=== PATIENT | male | born 1945 ===

== ENCOUNTER 2018-05-24 16:42 | Observation (INO) | payer MEDICARE, MEDICAID ==
[2018-05-24 17:51] LABS: BASO % 0.2 % (0.0-2.0); EOS # 0.1 K/uL (0.0-0.7); EOS % 1.1 % (0.0-4.0); HEMOGLOBIN 12.5 g/dL (12.0-18.0); LYMPH # 1.2 K/uL (1.0-4.3); LYMPH % 12.9 % (20.0-40.0); MEAN CELL VOLUME 94.5 fl (80.0-94.0); MEAN CORPUSCULAR HEMOGLOBIN 31.6 pg (27.0-31.0); MEAN CORPUSCULAR HGB CONC 33.4 g/dL (33.0-37.0); MEAN PLATELET VOLUME 8.1 fl (7.2-11.7); MONO # 0.6 K/uL (0.0-0.8); NEUT # 7.3 K/uL (1.8-7.0); NEUT % 78.8 % (50.0-75.0); RBC 3.94 Mil/uL (4.40-5.90); RED CELL DISTRIBUTION WIDTH 12.4 % (11.5-14.5); WHITE BLOOD COUNT 9.2 K/uL (4.8-10.8)
[2018-05-24 17:55] LABS: PROTHROMBIN TIME 10.7 Seconds (9.8-13.1)
--- NOTE | 2018-05-24 18:09 | RAD ---
HISTORY: Chest pain COMPARISON: Chest x-ray performed 08/04/16 TECHNIQUE: Chest PA and lateral FINDINGS: LUNGS: No focal consolidation. Please note that chest x-ray has limited sensitivity for the detection of pulmonary masses. PLEURA: No significant pleural effusion identified. No definite pneumothorax . CARDIOVASCULAR: Median sternotomy wires with evidence of CABG. OSSEOUS STRUCTURES: Degenerative changes of the spine. VISUALIZED UPPER ABDOMEN: Unremarkable. OTHER FINDINGS: None. IMPRESSION: Median sternotomy wires with evidence of CABG.
[2018-05-24 18:44] LABS: ALB/GLOB RATIO 1.4 (1.0-2.1); ALBUMIN 3.7 g/dL (3.5-5.0); ALT/SGPT 45 U/L (21-72); AST/SGOT 68 U/L (17-59); B-TYPE NATRIURETIC PEPTIDE 266 pg/ml (0-900); BLOOD UREA NITROGEN 19 mg/dl (9-20); CALCIUM 8.8 mg/dL (8.4-10.2); GFR NON-AFRICAN AMERICAN > 60
--- NOTE | 2018-05-24 19:30 | ED PDOC ---
HPI: Chest Pain Time Seen by Provider: 05/24/18 16:54 Chief Complaint (Nursing): Chest Pain Chief Complaint (Provider): Chest pain History Per: Patient History/Exam Limitations: no limitations Onset/Duration Of Symptoms: Hrs Current Symptoms Are (Timing): Gone Now Quality: Squeezing Nitro Therapy Administered: 1, Per EMS, Complete Relief Additional History Per: Patient Additional Complaint(s): 73yo male, history of hypertension, CAD, gastritis, pancreatic cancer, comes to ER for evaluation of chest pain, onset 30 minutes prior to arrival while driving his car. Patient states pain was epigastric and radiating to mid-sternum , pressure-like and constant. Patient was given NTG SL by EMS after which he reports feeling much better. He denies any shortness of breath or vomiting; he does have associated nausea. Patient states he was feeling normal state of health prior to chest pain but states this morning when taking his blood pressure, it was higher than usual. On my evaluation, patient is asymptomatic and reports feeling much better. PMD: Clinic Past Medical History Reviewed: Historical Data, Nursing Documentation, Vital Signs Vital Signs: Last Vital Signs Temp 97.9 F 05/25/18 12:25 Pulse 59 L 05/25/18 12:25 Resp 18 05/25/18 12:25 BP 152/69 H 05/25/18 12:25 Pulse Ox 98 05/25/18 12:25 - Medical History PMH: CAD, Gastritis, HTN, Hypercholesterolemia, Malignancy (pancreatic cancer) Denies: HIV, Chronic Kidney Disease - Surgical History Surgical History: CABG, Hernia Repair - Family History Family History: States: Hypertension - Immunization History Hx Tetanus Toxoid Vaccination: No Hx Influenza Vaccination: Yes Hx Pneumococcal Vaccination: No - Home Medications Home Medications: Ambulatory Orders Medication Instructions Recorded Aspirin/Dipyridamole [Aggrenox 25 1 cap PO Q12 05/24/18 mg-200 mg Capsule] Atorvastatin [Lipitor] 10 mg PO HS 05/24/18 Carvedilol [Coreg] 3.125 mg PO Q12 05/24/18 Multivitamin [Multi-Vitamin Daily] 1 tab PO DAILY 05/24/18 Aluminum Hydroxide/Magnesium H 30 ml PO QID PRN #1 udc 05/25/18 [Maalox 30 ml] Amlodipine Besylate/Benazepril 1 cap PO DAILY #30 cap 05/25/18 [Lotrel 10 mg-40 mg] Pantoprazole Sodium [Protonix] 40 mg PO DAILY #30 ect 05/25/18 Pantoprazole [Protonix EC Tab] 40 mg PO DAILY #14 ect 05/25/18 - Allergies Allergies/Adverse Reactions: Allergies Allergy/AdvReac Type Severity Reaction Status Date / Time clopidogrel bisulfate Allergy RASH Verified 05/24/18 16:47 [From Plavix] shellfish derived Allergy VOMITING Verified 05/24/18 16:47 Review of Systems ROS Statement: Except As Marked, All Systems Reviewed And Found Negative Cardiovascular: Positive for: Chest Pain (now resolved) Respiratory: Negative for: Shortness of Breath Gastrointestinal: Positive for: Nausea. Negative for: Vomiting Physical Exam - Reviewed Nursing Documentation Reviewed: Yes Vital Signs Reviewed: Yes - Physical Exam Appears: Positive for: Well, Non-toxic, No Acute Distress Head Exam: Positive for: ATRAUMATIC, NORMAL INSPECTION, NORMOCEPHALIC Skin: Positive for: Normal Color, Warm, DRY Eye Exam: Positive for: EOMI, Normal appearance, PERRL ENT: Positive for: Normal ENT Inspection Neck: Positive for: Normal, Painless ROM Cardiovascular/Chest: Positive for: Regular Rate, Rhythm Respiratory: Positive for: CNT, Normal Breath Sounds Gastrointestinal/Abdominal: Positive for: Normal Exam, Soft Back: Positive for: Normal Inspection Extremity: Positive for: Normal ROM Neurologic/Psych: Positive for: Alert, Oriented - Laboratory Results Result Diagrams: 05/24/18 17:34 05/24/18 17:34 - ECG ECG: Positive for: Interpreted By Me, Viewed By Me ECG Rhythm: Positive for: Normal QRS, Normal ST Segment, Sinus Rhythm. Negative for: ST/T Changes Rate: 66 O2 Sat by Pulse Oximetry: 100 (RA) Pulse Ox Interpretation: Normal Medical Decision Making Medical Decision Making: Impression: Chest pain w/ cardiac risk factors Plan: -- Chest x-ray -- EKG -- Labs [address] Keane, and patient to be admitted to [facility] due to chest pain. Scribe Attestation: Documented by Maxine Gonzalez, acting as a scribe for Constance Duran MD Provider Scribe Attestation: All medical record entries made by the Scribe were at my direction and personally dictated by me. I have reviewed the chart and agree that the record accurately reflects my personal performance of the history, physical exam, medical decision making, and the department course for this patient. I have also personally directed, reviewed, and agree with the discharge instructions and disposition. Disposition - Clinical Impression Clinical Impression: CAD (coronary artery disease), Chest pain - Disposition Disposition Time: 19:00 Condition: FAIR - Pt Status Changed To: Hospital Disposition Of: Observation - POA Present On Arrival: None
[2018-05-24 19:32] LABS: BARBITURATES, UR NEGATIVE (NEGATIVE); BENZODIAZEPINES, UR NEGATIVE (NEGATIVE); OPIATES, UR NEGATIVE (NEGATIVE); PHENCYCLIDINE, UR NEGATIVE (NEGATIVE)
--- NOTE | 2018-05-24 20:10 | CP.PCM.HP ---
<MartiniVanesa - Last Filed: 05/25/18 00:56> History of Present Illness - History of Present Illness History of Present Illness: 73 yr old M presents to ED via ambulance with complaint of epigastric pain radiating upwards which started at 5pm while he was driving. PMHx includes CAD s /p stent and CABG (triple bypass), HTN, pancreatic cancer, peripheral pulmonary emboli (2016) and gastritis. Epigastric pain was 10/10, radiating upwards and associated symptoms were sweating and nausea. Denies vomiting, SOB, fever, left arm pain, dizziness, palpitations, dysuria or syncope. Reports he was able to drive home, called 911; he took 4 baby aspirins as instructed; EMS did an EKG in the ambulance and told patient it was normal. 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 Smith and had a normal nuclear stress test 3 months ago. Reports compliance with all his medications except that for gastritis. Pain resolved once in ED. PMD: Dr. Bear[facility] Specialists: Dr. Smith-cardiology; Martin Saleem-Surgical Oncologist ([facility]) PMHx: CAD s/p CABG (triple bypass), HTN, pancreatic cancer, peripheral PE and gastritis SurgHx: resection of pancreatic tail (2013); cardiac stent and CABG (triple bypass) 2005; right hernia repair 2005 FMHx: mother at 96-HTN; father at 95-prostate cancer; siblings pased away from Etoh abuse complications and AIDS complications SocHx: denies tobacco, reports occasional beer , denies drugs Medications: Amlodipine besylate 10mg/Benzapril 40mg; Aspirin 25mg/ Dipyridamole 200mg PO Q12, Atorvastatin 10mg PO QHS, Coreg 3.125mg PO Q12; Multivitamin 1 tab QD Allergies: Plavix Code status: Full code Emergency contact: Erlinda Hearn () [phone] ER course: BP 113/88 mmHg, HR 67 bpm, Temp 98.3F, Resp rate 18, SpO2 100% on 2L supplemental O2 via nasal cannula -EKG: normal sinus rhythm at 66 bpm, no significant ST-T changes -troponin: < 0.0120 -CBC wnl, CMP: AST 68-the rest wnl, coags wnl -CXR: no focal consolidation, median sternotomy wires with evidence of CABG -Urine drug screen: negative -ED treatment: 2L supplemental O2 via nasal cannula Present on Admission - Present on Admission Any Indicators Present on Admission: No History of DVT/PE: Yes History of Uncontrolled Diabetes: No Urinary Catheter: No Decubitus Ulcer Present: No History Surgical Site Infection Following: None Review of Systems - Constitutional Constitutional: absent: Chills - EENT Eyes: absent: Change in Vision Ears: absent: Dizziness Nose/Mouth/Throat: absent: Sore Throat - Cardiovascular Cardiovascular: Chest Pain, Diaphoresis. absent: Palpitations, Syncope - Respiratory Respiratory: absent: Cough, Hemoptysis - Gastrointestinal Gastrointestinal: Abdominal Pain (epigastric), Heartburn, Nausea. absent: Constipation, Diarrhea, Hematemesis, Hematochezia, Vomiting - Genitourinary Genitourinary: absent: Difficulty Urinating, Dysuria - Musculoskeletal Musculoskeletal: absent: Arthralgias, Radiating Pain into Limb - Integumentary Integumentary: absent: Bleeding Lesions - Neurological Neurological: absent: Confusion, Dizziness, Headaches, Weakness - Endocrine Endocrine: absent: Polydipsia, Polyphagia, Polyuria - Hematologic/Lymphatic Hematologic: absent: Easy Bleeding, Easy Bruising Past Patient History - Infectious Disease Hx of Infectious Diseases: None - Past Medical History & Family History Past Medical History?: Yes - Past Social History Smoking Status: Never Smoked - CARDIAC Hx Hypercholesterolemia: Yes Hx Hypertension: Yes - PULMONARY Hx Respiratory Disorders: No - NEUROLOGICAL Hx Neurological Disorder: No - HEENT Hx HEENT Problems: No - RENAL Hx Chronic Kidney Disease: No - ENDOCRINE/METABOLIC Hx Endocrine Disorders: No - HEMATOLOGICAL/ONCOLOGICAL Hx Human Immunodeficiency Virus (HIV): No - INTEGUMENTARY Hx Dermatological Problems: No - MUSCULOSKELETAL/RHEUMATOLOGICAL Hx Musculoskeletal Disorders: No Hx Falls: No - GASTROINTESTINAL Hx Gastritis: Yes - GENITOURINARY/GYNECOLOGICAL Hx Genitourinary Disorders: No - PSYCHIATRIC Hx Psychophysiologic Disorder: No Hx Substance Use: No - SURGICAL HISTORY Hx Coronary Artery Bypass Graft: Yes - ANESTHESIA Hx Anesthesia: Yes Hx Anesthesia Reactions: No Meds Allergies/Adverse Reactions: Allergies Allergy/AdvReac Type Severity Reaction Status Date / Time clopidogrel bisulfate Allergy RASH Verified 05/24/18 16:47 [From Plavix] shellfish derived Allergy VOMITING Verified 09/06/18 16:47 Physical Exam - Constitutional Appears: No Acute Distress - Head Exam Head Exam: ATRAUMATIC, NORMOCEPHALIC - Eye Exam Eye Exam: EOMI, PERRL - ENT Exam ENT Exam: Mucous Membranes Moist - Neck Exam Neck exam: Positive for: Full Rom. Negative for: Lymphadenopathy - Respiratory Exam Respiratory Exam: Clear to Auscultation Bilateral, NORMAL BREATHING PATTERN. absent: Rales - Cardiovascular Exam Cardiovascular Exam: REGULAR RHYTHM, +S1, +S2 - GI/Abdominal Exam GI & Abdominal Exam: Normal Bowel Sounds, Soft (obese). absent: Tenderness - Extremities Exam Extremities exam: Positive for: full ROM. Negative for: calf tenderness, pedal edema - Back Exam Back exam: absent: CVA tenderness (L), CVA tenderness (R) - Neurological Exam Neurological exam: Alert, CN II-XII Intact, Oriented x3 - Psychiatric Exam Psychiatric exam: Normal Affect, Normal Mood - Skin Skin Exam: Dry, Normal Color, Warm Results - Vital Signs Recent Vital Signs: Last Vital Signs Temp 98.3 F 05/24/18 16:50 Pulse 66 05/24/18 19:33 Resp 18 05/24/18 16:50 BP 113/88 05/24/18 16:50 Pulse Ox 100 05/24/18 19:33 - Labs Result Diagrams: 05/24/18 17:34 05/24/18 17:34 Labs: Laboratory Results - last 24 hr 05/24/18 05/24/18 05/24/18 17:34 17:34 17:34 WBC 9.2 RBC 3.94 L Hgb 12.5 Hct 37.2 MCV 94.5 H MCH 31.6 H MCHC 33.4 RDW 12.4 Plt Count 252 MPV 8.1 Neut % (Auto) 78.8 H Lymph % (Auto) 12.9 L [place] % (Auto) 7.0 Eos % (Auto) 1.1 Baso % (Auto) 0.2 Neut # (Auto) 7.3 H Lymph # (Auto) 1.2 [place] # (Auto) 0.6 Eos # (Auto) 0.1 Baso # (Auto) 0.0 PT 10.7 INR 1.0 APTT 28.0 Sodium 139 Potassium 3.9 Chloride 108 H Carbon Dioxide 24 Anion Gap 11 BUN 19 Creatinine 0.9 Est GFR ( Amer) > 60 Est GFR (Non-Af Amer) > 60 Random Glucose 97 Calcium 8.8 Phosphorus 2.7 Total Bilirubin 0.3 AST 68 H D ALT 45 Alkaline Phosphatase 53 Troponin I < 0.0120 NT-Pro-B Natriuret Pep 266 Total Protein 6.4 Albumin 3.7 Globulin 2.7 Albumin/Globulin Ratio 1.4 Urine Opiates Screen Urine Methadone Screen Ur Barbiturates Screen Ur Phencyclidine Scrn Ur Amphetamines Screen U Benzodiazepines Scrn U Oth Cocaine Metabols U Cannabinoids Screen Blood Type Antibody Screen BBK History Checked 05/24/18 05/24/18 17:34 18:41 WBC RBC Hgb Hct MCV MCH MCHC RDW Plt Count MPV Neut % (Auto) Lymph % (Auto) [place] % (Auto) Eos % (Auto) Baso % (Auto) Neut # (Auto) Lymph # (Auto) [place] # (Auto) Eos # (Auto) Baso # (Auto) PT INR APTT Sodium Potassium Chloride Carbon Dioxide Anion Gap BUN Creatinine Est GFR ( Amer) Est GFR (Non-Af Amer) Random Glucose Calcium Phosphorus Total Bilirubin AST ALT Alkaline Phosphatase Troponin I NT-Pro-B Natriuret Pep Total Protein Albumin Globulin Albumin/Globulin Ratio Urine Opiates Screen Negative Urine Methadone Screen Negative Ur Barbiturates Screen Negative Ur Phencyclidine Scrn Negative Ur Amphetamines Screen Negative U Benzodiazepines Scrn Negative U Oth Cocaine Metabols Negative U Cannabinoids Screen Negative Blood Type A POSITIVE Antibody Screen Negative BBK History Checked Patient has bt Assessment & Plan - Assessment and Plan (Free Text) Assessment: 73 yr old M admitted for chest pain with PMHx CAD s/p CABG (triple bypass), HTN , pancreatic cancer, peripheral PE and gastritis. Chest pain -acute, r/o ACS vs gastritis vs costochondritis -EKG and 1st troponin wnl -admit to tele -serial troponin, f/u repeat EKG in AM -protonix 40 mg PO QD Hypertension -chronic, controlled -continue home medications (Amlodipine besylate 10mg/Benzapril 40mg; Aspirin 25mg/ Dipyridamole 200mg PO Q12) CAD s/p CABG (triple bypass) and stent -chronic, controlled (reports normal nuclear stress test 3 months ago) -continue home medicationsAtorvastatin 10mg PO QHS, Coreg 3.125mg PO Q12 DVT prophylaxis -hx peripheral PE's -Lovenox 40 mg SC QD - Date & Time Date: 05/24/18 Time: 19:40 <Neel Guzman D - Last Filed: 05/25/18 09:26> Results - Vital Signs Recent Vital Signs: Last Vital Signs Temp 98 F 05/25/18 08:00 Pulse 61 05/25/18 08:00 Resp 20 05/25/18 08:00 BP 153/73 H 05/25/18 08:00 Pulse Ox 98 05/25/18 08:00 - Labs Result Diagrams: 05/24/18 17:34 05/24/18 17:34 Labs: Laboratory Results - last 24 hr 05/24/18 05/24/18 05/24/18 17:34 17:34 17:34 WBC 9.2 RBC 3.94 L Hgb 12.5 Hct 37.2 MCV 94.5 H MCH 31.6 H MCHC 33.4 RDW 12.4 Plt Count 252 MPV 8.1 Neut % (Auto) 78.8 H Lymph % (Auto) 12.9 L [place] % (Auto) 7.0 Eos % (Auto) 1.1 Baso % (Auto) 0.2 Neut # (Auto) 7.3 H Lymph # (Auto) 1.2 [place] # (Auto) 0.6 Eos # (Auto) 0.1 Baso # (Auto) 0.0 PT 10.7 INR 1.0 APTT 28.0 Sodium 139 Potassium 3.9 Chloride 108 H Carbon Dioxide 24 Anion Gap 11 BUN 19 Creatinine 0.9 Est GFR ( Amer) > 60 Est GFR (Non-Af Amer) > 60 Random Glucose 97 Calcium 8.8 Phosphorus 2.7 Total Bilirubin 0.3 AST 68 H D ALT 45 Alkaline Phosphatase 53 Troponin I < 0.0120 NT-Pro-B Natriuret Pep 266 Total Protein 6.4 Albumin 3.7 Globulin 2.7 Albumin/Globulin Ratio 1.4 Urine Opiates Screen Urine Methadone Screen Ur Barbiturates Screen Ur Phencyclidine Scrn Ur Amphetamines Screen U Benzodiazepines Scrn U Oth Cocaine Metabols U Cannabinoids Screen Blood Type Antibody Screen BBK History Checked 05/24/18 05/24/18 05/25/18 17:34 18:41 00:45 WBC RBC Hgb Hct MCV MCH MCHC RDW Plt Count MPV Neut % (Auto) Lymph % (Auto) [place] % (Auto) Eos % (Auto) Baso % (Auto) Neut # (Auto) Lymph # (Auto) [place] # (Auto) Eos # (Auto) Baso # (Auto) PT INR APTT Sodium Potassium Chloride Carbon Dioxide Anion Gap BUN Creatinine Est GFR ( Amer) Est GFR (Non-Af Amer) Random Glucose Calcium Phosphorus Total Bilirubin AST ALT Alkaline Phosphatase Troponin I < 0.0120 NT-Pro-B Natriuret Pep Total Protein Albumin Globulin Albumin/Globulin Ratio Urine Opiates Screen Negative Urine Methadone Screen Negative Ur Barbiturates Screen Negative Ur Phencyclidine Scrn Negative Ur Amphetamines Screen Negative U Benzodiazepines Scrn Negative U Oth Cocaine Metabols Negative U Cannabinoids Screen Negative Blood Type A POSITIVE Antibody Screen Negative BBK History Checked Patient has bt Attending/Attestation - Attestation I have personally seen and examined this patient.: Yes I have fully participated in the care of the patient.: Yes I have reviewed all pertinent clinical information: Yes
[2018-05-24] MEDS ORDERED: Aspirin-Dipyridamole 200-25 mg ER Cap PO SCH (21:00)
[2018-05-24] MEDS: Pantoprazole 40 mg EC Tab PO SCH (22:09)
[2018-05-25] MEDS ORDERED: Alum-Mag Hydrox-Simethicone Susp (30 mL) PO ONE (01:27)
--- NOTE | 2018-05-25 07:53 | CARD ---
APPROVED REPORT Date of service: 05/24/2018 EKG Measurement Heart [id number] <Conclusion> Normal sinus rhythm Normal ECG
[2018-05-25] MEDS ORDERED: Enoxaparin 40 mg Syringe SC SCH (09:00)
[2018-05-25] MEDS ORDERED: Multivitamin With Minerals Tab PO SCH (09:00)
[2018-05-25] MEDS: Pantoprazole 40 mg EC Tab PO SCH (10:17)
[2018-05-25] MEDS: Aspirin-Dipyridamole 200-25 mg ER Cap PO SCH ×2 (10:24→12:14)
--- NOTE | 2018-05-25 11:19 | CP.PCM.DIS ---
<Lora Reed - Last Filed: 05/25/18 17:01> Provider - Provider Date of Admission: 05/24/18 19:26 Attending physician: Neel Guzman MD Time Spent in preparation of Discharge (in minutes): 30 Diagnosis - Discharge Diagnosis (1) Chest pain Status: Acute Comment: Troponin x 3 neg, resolved on admission. F/u with Dr. Smith on . (2) HTN (hypertension) Status: Chronic (3) CAD (coronary artery disease) Status: Chronic Hospital Course - Lab Results Lab Results: Most Recent Lab Values WBC 9.2 K/uL (4.8-10.8) 05/24/18 17:34 RBC 3.94 Mil/uL (4.40-5.90) L 05/24/18 17:34 Hgb 12.5 g/dL (12.0-18.0) 05/24/18 17:34 Hct 37.2 % (35.0-51.0) 05/24/18 17:34 MCV 94.5 fl (80.0-94.0) H 05/24/18 17:34 MCH 31.6 pg (27.0-31.0) H 05/24/18 17:34 MCHC 33.4 g/dL (33.0-37.0) 05/24/18 17:34 RDW 12.4 % (11.5-14.5) 05/24/18 17:34 Plt Count 252 K/uL (130-400) 05/24/18 17:34 MPV 8.1 fl (7.2-11.7) 05/24/18 17:34 Neut % (Auto) 78.8 % (50.0-75.0) H 05/24/18 17:34 Lymph % (Auto) 12.9 % (20.0-40.0) L 05/24/18 17:34 [place] % (Auto) 7.0 % (0.0-10.0) 05/24/18 17:34 Eos % (Auto) 1.1 % (0.0-4.0) 05/24/18 17:34 Baso % (Auto) 0.2 % (0.0-2.0) 05/24/18 17:34 Neut # (Auto) 7.3 K/uL (1.8-7.0) H 05/24/18 17:34 Lymph # (Auto) 1.2 K/uL (1.0-4.3) 05/24/18 17:34 [place] # (Auto) 0.6 K/uL (0.0-0.8) 05/24/18 17:34 Eos # (Auto) 0.1 K/uL (0.0-0.7) 05/24/18 17:34 Baso # (Auto) 0.0 K/uL (0.0-0.2) 05/24/18 17:34 PT 10.7 Seconds (9.8-13.1) 05/24/18 17:34 INR 1.0 05/24/18 17:34 APTT 28.0 Seconds (25.6-37.1) 05/24/18 17:34 Sodium 139 mmol/l (132-148) 05/24/18 17:34 Potassium 3.9 MMOL/L (3.6-5.0) 05/24/18 17:34 Chloride 108 mmol/L (98-107) H 05/24/18 17:34 Carbon Dioxide 24 mmol/L (22-30) 05/24/18 17:34 Anion Gap 11 (10-20) 05/24/18 17:34 BUN 19 mg/dl (9-20) 05/24/18 17:34 Creatinine 0.9 mg/dl (0.8-1.5) 05/24/18 17:34 Est GFR ( Amer) > 60 05/24/18 17:34 Est GFR (Non-Af Amer) > 60 05/24/18 17:34 Random Glucose 97 mg/dL (75-110) 05/24/18 17:34 Calcium 8.8 mg/dL (8.4-10.2) 05/24/18 17:34 Phosphorus 2.7 mg/dl (2.5-4.5) 05/24/18 17:34 Total Bilirubin 0.3 mg/dl (0.2-1.3) 05/24/18 17:34 AST 68 U/L (17-59) H D 05/24/18 17:34 ALT 45 U/L (21-72) 05/24/18 17:34 Alkaline Phosphatase 53 U/L (38-126) 05/24/18 17:34 Troponin I < 0.0120 ng/mL (0.00-0.120) 05/25/18 10:30 NT-Pro-B Natriuret Pep 266 pg/ml (0-900) 05/24/18 17:34 Total Protein 6.4 G/DL (6.3-8.2) 05/24/18 17:34 Albumin 3.7 g/dL (3.5-5.0) 05/24/18 17:34 Globulin 2.7 gm/dL (2.2-3.9) 05/24/18 17:34 Albumin/Globulin Ratio 1.4 (1.0-2.1) 05/24/18 17:34 Urine Opiates Screen Negative (NEGATIVE) 05/24/18 18:41 Urine Methadone Screen Negative (NEGATIVE) 05/24/18 18:41 Ur Barbiturates Screen Negative (NEGATIVE) 05/24/18 18:41 Ur Phencyclidine Scrn Negative (NEGATIVE) 05/24/18 18:41 Ur Amphetamines Screen Negative (NEGATIVE) 05/24/18 18:41 U Benzodiazepines Scrn Negative (NEGATIVE) 05/24/18 18:41 U Oth Cocaine Metabols Negative (NEGATIVE) 05/24/18 18:41 U Cannabinoids Screen Negative (NEGATIVE) 05/24/18 18:41 Blood Type A POSITIVE 05/24/18 17:34 Antibody Screen Negative 05/24/18 17:34 BBK History Checked Patient has bt 05/24/18 17:34 - Hospital Course Hospital Course: 73 yr old M with PMHx CAD s/p CABG (triple bypass), HTN, pancreatic cancer, gastritis admitted for chest pain to r/o ACS. On admission EKG did not show evidence of ST-T wave changes, troponin x 3 negative. Patient was seen and examined at bedside this morning. Patient denies chest pain. Dr Shin was called, who covers for Dr. Smith ( Pt's rental counter clerk), and stated that patient had an stress test on 01/01/[address] Shin recommended that if Troponin 3 negative patient could be discharged home and follow up on Monday with Dr. Smith. Patient was informed, and agreed with plan. Patient stable for DC on current home medications, will add PPI, and Maalox PRN to manage gastritis. - Date & Time of H&P Date of H&P: 05/24/18 Time of H&P: 19:40 Discharge Exam - Head Exam Head Exam: ATRAUMATIC, NORMOCEPHALIC - Eye Exam Eye Exam: Normal appearance - ENT Exam ENT Exam: Mucous Membranes Moist - Respiratory Exam Respiratory Exam: Clear to PA & Lateral, NORMAL BREATHING PATTERN. absent: Rales, Rhonchi, Wheezes, Respiratory Distress, Stridor - Cardiovascular Exam Cardiovascular Exam: REGULAR RHYTHM, +S1, +S2 - GI/Abdominal Exam GI & Abdominal Exam: Normal Bowel Sounds, Soft. absent: Distended, Guarding, Rigid, Tenderness - Extremities Exam Extremities exam: normal inspection - Neurological Exam Neurological exam: Alert, Oriented x3 - Skin Skin Exam: Dry, Intact, Normal Color Discharge Plan - Discharge Medications Prescriptions: Aluminum Hydroxide/Magnesium H [Maalox 30 ml] 30 ml PO QID PRN #1 udc PRN Reason: epigastric pain Amlodipine Besylate/Benazepril [Lotrel 10 mg-40 mg] 1 cap PO DAILY #30 cap Pantoprazole [Protonix EC Tab] 40 mg PO DAILY #14 ect Pantoprazole Sodium [Protonix] 40 mg PO DAILY #30 ect - Follow Up Plan Condition: IMPROVED Disposition: HOME/ ROUTINE Additional Instructions: Please return to emergency room if chest pain, SOB, palpitations or other worrisome symptoms. Follow up with your Cardiology next Monday05/28/18. Referrals: Ilir Bear MD [Family Provider] - Jared Shin MD [Staff Provider] - <Neel Guzman - Last Filed: 05/26/18 09:23> Provider - Provider Date of Admission: 05/24/18 19:26 Attending physician: Neel Guzman MD Hospital Course - Lab Results Lab Results: Most Recent Lab Values WBC 9.2 K/uL (4.8-10.8) 05/24/18 17:34 RBC 3.94 Mil/uL (4.40-5.90) L 05/24/18 17:34 Hgb 12.5 g/dL (12.0-18.0) 05/24/18 17:34 Hct 37.2 % (35.0-51.0) 05/24/18 17:34 MCV 94.5 fl (80.0-94.0) H 05/24/18 17:34 MCH 31.6 pg (27.0-31.0) H 05/24/18 17:34 MCHC 33.4 g/dL (33.0-37.0) 05/24/18 17:34 RDW 12.4 % (11.5-14.5) 05/24/18 17:34 Plt Count 252 K/uL (130-400) 05/24/18 17:34 MPV 8.1 fl (7.2-11.7) 05/24/18 17:34 Neut % (Auto) 78.8 % (50.0-75.0) H 05/24/18 17:34 Lymph % (Auto) 12.9 % (20.0-40.0) L 05/24/18 17:34 [place] % (Auto) 7.0 % (0.0-10.0) 05/24/18 17:34 Eos % (Auto) 1.1 % (0.0-4.0) 05/24/18 17:34 Baso % (Auto) 0.2 % (0.0-2.0) 05/24/18 17:34 Neut # (Auto) 7.3 K/uL (1.8-7.0) H 05/24/18 17:34 Lymph # (Auto) 1.2 K/uL (1.0-4.3) 05/24/18 17:34 [place] # (Auto) 0.6 K/uL (0.0-0.8) 05/24/18 17:34 Eos # (Auto) 0.1 K/uL (0.0-0.7) 05/24/18 17:34 Baso # (Auto) 0.0 K/uL (0.0-0.2) 05/24/18 17:34 PT 10.7 Seconds (9.8-13.1) 05/24/18 17:34 INR 1.0 05/24/18 17:34 APTT 28.0 Seconds (25.6-37.1) 05/24/18 17:34 Sodium 139 mmol/l (132-148) 05/24/18 17:34 Potassium 3.9 MMOL/L (3.6-5.0) 05/24/18 17:34 Chloride 108 mmol/L (98-107) H 05/24/18 17:34 Carbon Dioxide 24 mmol/L (22-30) 05/24/18 17:34 Anion Gap 11 (10-20) 05/24/18 17:34 BUN 19 mg/dl (9-20) 05/24/18 17:34 Creatinine 0.9 mg/dl (0.8-1.5) 05/24/18 17:34 Est GFR ( Amer) > 60 05/24/18 17:34 Est GFR (Non-Af Amer) > 60 05/24/18 17:34 Random Glucose 97 mg/dL (75-110) 05/24/18 17:34 Calcium 8.8 mg/dL (8.4-10.2) 05/24/18 17:34 Phosphorus 2.7 mg/dl (2.5-4.5) 05/24/18 17:34 Total Bilirubin 0.3 mg/dl (0.2-1.3) 05/24/18 17:34 AST 68 U/L (17-59) H D 05/24/18 17:34 ALT 45 U/L (21-72) 05/24/18 17:34 Alkaline Phosphatase 53 U/L (38-126) 05/24/18 17:34 Troponin I < 0.0120 ng/mL (0.00-0.120) 05/25/18 10:30 NT-Pro-B Natriuret Pep 266 pg/ml (0-900) 05/24/18 17:34 Total Protein 6.4 G/DL (6.3-8.2) 05/24/18 17:34 Albumin 3.7 g/dL (3.5-5.0) 05/24/18 17:34 Globulin 2.7 gm/dL (2.2-3.9) 05/24/18 17:34 Albumin/Globulin Ratio 1.4 (1.0-2.1) 05/24/18 17:34 Urine Opiates Screen Negative (NEGATIVE) 05/24/18 18:41 Urine Methadone Screen Negative (NEGATIVE) 05/24/18 18:41 Ur Barbiturates Screen Negative (NEGATIVE) 05/24/18 18:41 Ur Phencyclidine Scrn Negative (NEGATIVE) 05/24/18 18:41 Ur Amphetamines Screen Negative (NEGATIVE) 05/24/18 18:41 U Benzodiazepines Scrn Negative (NEGATIVE) 05/24/18 18:41 U Oth Cocaine Metabols Negative (NEGATIVE) 05/24/18 18:41 U Cannabinoids Screen Negative (NEGATIVE) 05/24/18 18:41 Blood Type A POSITIVE 05/24/18 17:34 Antibody Screen Negative 05/24/18 17:34 BBK History Checked Patient has bt 05/24/18 17:34
[2018-05-25 12:25] VITALS: BP 152/69; RESP 18; TEMP 97.9
[2018-05-25 15:42] VITALS: PULSE 66; O2SAT 100
--- NOTE | 2018-05-26 09:01 | CARD ---
APPROVED REPORT Date of service: 05/25/2018 EKG Measurement Heart [id number] NM [id number] <Conclusion> Sinus bradycardia with sinus arrhythmia Minimal voltage criteria for LVH, may be normal variant Borderline ECG
== END 2018-05-25 13:00 | disposition home or self-care (01) ==
LOC: H.ER 16:42 → H.ERHOLD 19:26 → H.TEL 23:13
DX: R07.9 Chest pain, unspecified (principal); I10 Essential (primary) hypertension; I25.10 Atherosclerotic heart disease of native coronary artery without angina pectoris; Z95.1 Presence of aortocoronary bypass graft; Z95.5 Presence of coronary angioplasty implant and graft; Z86.711 Personal history of pulmonary embolism; Z85.07 Personal history of malignant neoplasm of pancreas; K29.70 Gastritis, unspecified, without bleeding; E78.00 Pure hypercholesterolemia, unspecified; Z91.013 Allergy to seafood
CPT/HCPCS: 36415; 71046; 80053; 83880; 84100; 84484; 85025; 85610; 85730; 86850; 86900; 93005; 99285; G0378; G0480